=== PATIENT | male | born 1950 | race Caucasian/White ===

== ENCOUNTER → 2019-10-21 11:20 | Outpatient (CLI) | payer MEDICARE, OTHER, SELFPAY ==
[2019-10-21 22:27] LABS: COVID19 Sendout Not Detected (Not Detect)
== END ==
PROVIDERS: PCP Internal Medicine; Visit Provider Nurse Practitioner
DX: Z01.812 Encounter for preprocedural laboratory examination (principal)
CPT/HCPCS: 87635

== ENCOUNTER 2019-10-24 05:47 | Inpatient (IN) | payer MEDICARE, OTHER, SELFPAY ==
[2019-10-20 14:02] VITALS: BMI 31.4
[2019-10-24] VITALS (21 sets, daily range): BP systolic 79–128; BP diastolic 44–84; PULSE 69–701; RESP 10–91; TEMP 36.4–37.1; O2SAT 90–99; BMI 28.4
--- NOTE | 2019-10-24 | DI.RAD.S_ITS ---
PROCEDURE: XR HIP W PEL IF DONE RT 2V INDICATIONS: HIP ARTHROPLASTY RIGHT TECHNIQUE: 2 view(s) of the hip acquired. COMPARISON: [facility] [place], [place], XR PELVIS WITH LATERAL HIP RIGHT, 06/10/2019, 10:51. FINDINGS: Bones: Patient is status post right hip arthroplasty, with hardware components in expected positions. The hip joint appears congruent. The visualized bony structures appear intact. Soft tissues: Overlying postoperative changes are noted. No suspicious soft tissue densities. IMPRESSION: Right hip arthroplasty with prosthesis in anatomic alignment. Dictated by: Maxi Cameron M.D. on 10/24/2019 at 14:56 Approved by: Maxi Cameron M.D. on 10/24/2019 at 14:57
--- NOTE | 2019-10-24 | DI.RAD.S_ITS ---
PROCEDURE: XR PELVIS 1-2V INDICATIONS: POST OP ANTERIOR HIP ARTHROPLASTY TECHNIQUE: 1 view of the lower pelvis acquired. COMPARISON: None. FINDINGS: Bones: Patient is status post right hip arthroplasty, with hardware components in expected positions. The hip joint appears congruent. The visualized bony structures appear intact. Soft tissues: Overlying postoperative changes are noted. No suspicious soft tissue densities. IMPRESSION: Right total hip arthroplasty, normal alignment established. Dictated by: Jc Weldon M.D. on 10/24/2019 at 11:02 Approved by: Jc Weldon M.D. on 10/24/2019 at 11:03
[2019-10-24] MEDS: LACTATED RINGERS 1,000 ML 42 ML IV ×2 (07:04→08:50)
[2019-10-24] MEDS: CELECOXIB 200 MG CAPSULE 400 MG PO (07:08)
[2019-10-24] MEDS: GABAPENTIN 300 MG CAPSULE PO (07:08)
[2019-10-24] MEDS: ACETAMINOPHEN 325 MG TABLET 975 MG PO (07:08)
--- NOTE | 2019-10-24 07:34 | PM.PREOP ---
Pre-operative Note COVID-19 COVID-19 status: Negative Result date/Date tested (Pos, Neg/Pending): 10/21/19 Interval Note History & Physical reviewed/Exam performed by Physician: Yes Changes to H&P: No H&P completed within 30 days and has changed as indicated here:: Plan for right anterior JOSEMANUEL. Patient does not have an email address.
--- NOTE | 2019-10-24 07:41 | SUR.PREOP ---
Dr. Hinojosa ok with current order for Anc in relation to pt allergy to PCN. Communicated this with circulating RN
[2019-10-24] MEDS: CEFAZOLIN 2 GM/100 ML FROZ.PIGGY IV ×2 (07:49→15:21)
[2019-10-24] MEDS: TRANEXAMIC ACID 1,000 MG VIAL 2000 MG INJ ×2 (08:27→09:58)
--- NOTE | 2019-10-24 08:37 | SUR.OPER ---
Supine on padded [place] table with bilateral legs secured in padded positioning boots and suspended in positioning spars, operative leg in traction per surgeon. Head on one pillow. Arm on non-operative side secured on padded armboard <90 degrees abduction. Arm on operative side padded and resting across chest then secured with tape over sheet. Padded perineal post in place per surgeon.
[2019-10-24] MEDS: ROPIVACAINE 0.5% PF 30ML 20 ML INJ (08:46)
[2019-10-24] MEDS: KETOROLAC 30 MG/ML VIAL IV (08:49)
[2019-10-24] MEDS: MORPHINE 4 MG/ML INJ IM (08:50)
--- NOTE | 2019-10-24 10:23 | P.OP_ITS ---
Operative Date/Time/Diagnoses Date of procedure: 10/24/19 Time of procedure: 10:23 Pre-op diagnosis: right hip OA Post-op diagnosis: same Procedure & Clinicians Procedure: right anterior JOSEMANUEL Same procedure as scheduled: Yes Indications: right hip OA Surgeon: Monty Hinojosa Stockroom Supervisor: Rui Ruiz Anesthesia Type: General and Spinal Operative Notes Findings: right hip OA with femoral neck CAM lesion Closure Type: primary Specimen(s): none sent Prosthetic devices, grafts, tissues, transplants, or devices: Caballero and Nephew 58 mm R3 cup Caballero [employer] Nephew 58 x 36mm neutral liner Caballero [employer] Nephew Anthology 12 stem standard offset 1x 25mm screw 1x 15mm screw Biolox delta 36 + 4 head Estimated Blood Loss (mL): 500 Blood products transfused: none Procedure in detail: Patient was met in the preoperative holding area where the site and side of surgery were marked by MD. All last minute questions were answered. Informed consent was then signed in clinic however this was also reviewed the preoperative area no further questions. Patient was informed of then ports collection and that I would like to collect e-mail for possible surgery followup patient is not have any male at rest. Patient was then brought back in the operating room where he received a spinal anesthetic and was induced under general anesthesia. He was then transferred onto the [place] table and bilateral feet were placed in [place] table boots. The right hip was then prepped and draped in normal sterile fashion. A surgical time-out was performed verifying the site and side of surgery as well as the name of the patient. A 7 cm long incision was made approximately 2 cm distal and 1 cm lateral to the ASIS aiming towards the fibular head. Skin incision was made using 10. Blade followed by electrocautery down to the level of the tensor fascia tensor fascia was then split with an 10. Blade. An Allis clamp was placed on the medial leaflet of the tensor fascia and the tensor was then reflected laterally. A Cobra was placed over the superior neck of the femoral neck. A Meyerding was then placed over the lateral aspect of the rectus were retracted medially. At this point the ascending branches of the circumflex femoral circumflex were identified and coagulated. A 2nd cobra was placed over the inferior neck of the femoral neck and the pre capsular fat pad was removed using electrocautery. A bent Hohmann was then placed over the superior lip of the acetabulum giving us good visualization of the capsule. A inverted T-shaped capsulotomy was performed in the superior and inferior leaflets were tagged with FiberWire. C obras were then placed intracapsularly. A reciprocating saw was then used to make a femoral neck cut femoral neck length was based off our preoperative templating. A corkscrew was then placed into the femoral head and the femoral head was removed. The soft tissue sleeve protector was then placed into the wound and retractors were then replaced. We began reaming with a number 50 mm hemispherical Reamer 1st medialized. Fluoro was brought in to verify positioning. We began up sizing by 2s until we reached a size 56 mm Reamer started having good rim fit. We then up sized by 1-57 mm Reamer this had good fit as well and 50 mm 3 hole R3 cup was selected. This was then malleted it into place under fluoroscopic guidance. Two dome screws were placed 25 mm and 15 mm screw. The 50 mm x 36 mm neutral liner was then impacted in the cup and all the tabs were checked to be flushed with the cup rim. Femoral elevator hook was then placed underneath the femur the foot was then externally rotated to maximal external rotation which is about 100? the foot was then extended to the ground and abducted. A bent Hohmann was then placed over the superior aspect of the capsule and capsular release from the shoulder of the greater trochanter was performed and limited extra short external rotator release was also performed. A large please see retractor was then placed over the greater trochanter replacing the bent Hohmann. A Steele retractor was placed over the medial aspect of the calcar and. A canal finer was then used to find the center of the femoral canal with began broaching with the chili pepper broach followed by and AP did 5. For the broach and then from there up by 1s. A 12 stem had a good rotational fit we then calcar planed down to the flushed level of the 12. Stem. This was then trialed with a standard offset and a neutral head. Fluoroscopic views demonstrated that we were slightly short on this side. The hip was then dislocated a size 12 final stem was selected with a standard offset this was then malleted into place. A 36+ 4 mm bio locks head was then selected the trunnion was cleaned and the ceramic head was malleted onto the taper. The hip was then reduced a final time. Hip was stable to maximal external rotation of the foot and also stable to 90? of external rotation and full extension to the floor. The wound was then irrigated with Betadine allowed to sit for 5 minutes prior to copious irrigation with normal saline local injection was then infiltrated into the capsule as well as the tensor. The capsule was then repaired using a running Ethibond suture. The FiberWire tag sutures were removed. A 1. Vicryl was using a running locking fashion to close the tensor fascia followed by 1. Vicryl in the fat layer followed by 2 Vicryl in the subcutaneous layer layer followed by a 3 0 strata fix in the subcuticular layer followed by Dermabond and Aquacel dressing Complications: none Post-operative Condition: stable Disposition: PACU Plan for aftercare: 24 hours post-op abx, WBAT RLE, 6 weeks ASA 81mg BID
[2019-10-24] MEDS: LACTATED RINGERS 1,000 ML 120 ML IV (10:45)
--- NOTE | 2019-10-24 10:54 | SUR.PHASEI ---
arousing spontaneously, denies pain/nausea. Ice chips given.skin warm and dry, resp unlabored.
--- NOTE | 2019-10-24 11:05 | SUR.PHASEI ---
Closed 3 bruise, closed abrasion look on the back of the right forarm. Antibiotic ointment and allevyn dressing applied. Pt awake/drowsy, talking appropriately. Tolerating ice chips. Denies being light headed or dizzy. foot of bed elevated.
--- NOTE | 2019-10-24 11:22 | SUR.PHASEI ---
report called to JARRET Germain. Report included VS, pt status, abrasion, taking ice chips, no pain/nausea and anesthesia report. Stated that she is comfortable taking the patient.
--- NOTE | 2019-10-24 11:46 | SUR.PHASEI ---
1133 to room 208, bed down and locked, call light within reach. Pt awake and oriented, moving LE, denies pain, dressing remains CDI. Glasses are on the patient, clothing bag to the room. SCD's on. Status updated, no questions/concerns.
[2019-10-24] MEDS: LACTATED RINGERS 1,000 ML 125 ML IV ×2 (12:13→20:21)
--- NOTE | 2019-10-24 12:25 | PC.NURSE ---
Day shift note: 1145 Received patient from PACU to room 208 S/P left JOSEMANUEL scheduled by Dr. Hinojosa. Awake, alert, and pleasantly calm, on RA, sats 96-98%. Left anterior hip Aquacel, CDI, with ice pack overlying. LLE movable, 2+ pedal pulse, numbness to mid thigh extending to toes, improving. Placed SCDs upon arrival. Oriented to room, environment, and plan of care, high fall risk precautions initiated, call light within reach.
[2019-10-24] MEDS: ALBUTEROL 2.5 MG/3 ML NEB (ADULT) INH ×2 (14:51→20:01)
[2019-10-24 15:01] LABS: INR 1.2 (0.9-1.3); Prothrombin Time 13.5 SECONDS (10.1-12.7)
[2019-10-24] MEDS: ACETAMINOPHEN 325 MG TABLET 650 MG PO ×2 (15:20→20:20)
[2019-10-24] MEDS: ONDANSETRON 4 MG/2 ML INJ IV ×2 (15:23→20:19)
[2019-10-24] MEDS: OXYCODONE IR 5 MG TABLET PO ×2 (15:23→19:02)
--- NOTE | 2019-10-24 17:31 | PT.IIE ---
Current Diagnoses Unilateral primary osteoarthritis, right hip (10/24/19) Surgery Performed Operation Date: 10/24/19 07:45 Actual Procedures p Total Hip Arthroplasty/Anterior Approach(Right) - Monty Hinojosa MD Surgical History (Last Updated 10/20/19 @ 14:19 by Letty Farmer, RN) History of bilateral knee arthroplasty (Acute 2017) Hx of appendectomy (Acute) Hx of hernia repair (Acute) Hx of sinus surgery (Acute) Medical History (Last Updated 10/20/19 @ 14:59 by Letty Farmer RN) Afib (Acute) Compression fracture of T11 vertebra (Acute 1973) Easy bruisability (Acute) Pacemaker (Acute) Thin skin (Acute) Physical Therapy Inpatient Evaluation/Re-Eval M1 PT/OT-IP Prior Functional Status Start: 10/24/19 13:19 Freq: NEEDED Status: Active Protocol: Document 10/24/19 17:15 AW (Rec: 10/24/19 17:31 AW [id number]) Medical Review Prior Functional Status Medical History Reviewed Yes Communication Pt is an effective verbal communicator. Mobility and Gait Pt is modified independent with use of SPC (held in right hand) nearly 100% of the time . His ambulation tolerance has been limited to 1/2 block due to worsening pain. Activities of Daily Living and IADL's Independent. 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 Social History Household Members spouse Living Arrangements House Number of Floors (Floors) One Floor Number of Stairs To Enter/Railing? unknown Home Environment Standard Height Toilet,Tub/ Shower Home Equipment Front Wheel Walker,Raised Toilet Seat Without Armrests, Shower Seat with Backrest,Hand Held Shower Additional Social History Comment Pt lives with his spouse, Rylee, who will be available and able to assist as needed at discharge. Pt states he plans to sleep in his recliner at home until more comfortable in the bed. M2 PT-IP Current Condition Start: 10/24/19 13:19 Freq: NEEDED Status: Active Protocol: Document 10/24/19 17:15 AW (Rec: 10/24/19 17:31 AW [id number]) Physical Therapy Current Condition Current Condition Evaluation Date 10/24/19 Treatment Diagnosis s/p R JOSEMANUEL anterior approach; difficulty in walking Onset Date 10/24/19 Precautions Anterior Hip Precautions No Hip Extension,No Hip External Rotation Weight Bearing Status Weight Bearing Status Weight Bear as Tolerated M3 PT-IP Subjective Start: 10/24/19 13:19 Freq: NEEDED Status: Active Protocol: Document 10/24/19 17:15 AW (Rec: 10/24/19 17:31 AW [id number]) Subjective Physical Therapy Visit Type Type Initial Evaluation Visit Start Time 16:00 Visit Stop Time 16:30 Total Visit Minutes 30 Physical Therapy Visit Comments Patient Comments Pt feeling nauseated but willing to participate with PT . Therapy Pain Assessment Pain When Pain Assessed During Mobility Pain Present Pain Present Denied Pain M4 PT-IP Mobility and Gait Start: 10/24/19 13:19 Freq: NEEDED Status: Active Protocol: Document 10/24/19 17:15 AW (Rec: 10/24/19 17:31 AW [id number]) PT-Bed Mobility Assessment Supine to Sit Supine to Sit Contact Guard Assistance Sit to Supine Sit to Supine Minimal Assistance,1 Person Assistance Scooting Scooting to Edge of Bed Contact Guard Assistance PT-Transfer Assessment Sit to and From Stand Sit to and from Stand Minimal Assistance,Moderate Assistance,1 Person Assistance ,Use of Upper Extremities Equipment Transfer Assistive Device Gait Belt,Front Wheeled Walker Orthotic/Prosthetic Devices or Brace: No Transfers Transfer Destination Bed,Bedside Commode Transfer Technique Stand Step Pivot Transfer Ability Level of Assist Minimal Assistance Comments Mobility Comments Pt was reclined in the bed upon PT arrival. Nursing stated his BP had been low and he had been medicated for nausea. BP in supine was 113/ 80 HR 73 and SpO2 95% on 1L NC . He completed supine to sit CGA and sat EOB with and without UE support. He stood using FWW min A x 1 and transferred slowly to the [facility] set up on his right side min A . He complained of increased nausea while sitting on the commode and had three episodes of dry heaves. He became clammy and cold. BP was 108/83 HR 86. Pt was unable to void so stood from the BSC mod A x 1 due to increasing weakness and nausea. He was assisted back to the bed mod A x 1 and he completed sit to supine min A x 1. He was positioned in the bed with fan directed at his face, SCD's applied, bed alarm armed for safety, and call light within reach. Gait Assessment Comments Gait Comments Pt unable at this time. Stair Climbing Assessment Comments Stair Climbing Comments Not assessed. PT-Balance Assessment Sitting Balance and Reactions Static Sitting Balance Ability Good Dynamic Sitting Balance Ability Good Standing Balance and Reactions Static Standing Balance Ability Fair Dynamic Standing Balance Ability Poor Device Used FWW M5 PT-IP Objective Assessments Start: 10/24/19 13:19 Freq: NEEDED Status: Active Protocol: Document 10/24/19 17:15 AW (Rec: 10/24/19 17:31 AW [id number]) Orientation Orientation/Cognition Level of Alertness Lethargic Orientation Name,Day of Week,Place, Situation Language Function Ability No Deficits Noted Safety Awareness Decreased Safety Awareness Memory Description No Deficits Noted Gross Range of Motion Lower Extremity ROM Assessment Right Impaired Strength Lower Extremity Strength Assessment Right Impaired Hip 3+/5 Knee 4-/5 Ankle 4/5 Coordination Assessment Gross Coordination Gross Coordination WNL Sensation Assessment Sensation Gross Sensation WNL Muscle Tone Muscle Tone WNL Yes M6 PT-IP Treatment Start: 10/24/19 13:19 Freq: NEEDED Status: Active Protocol: Document 10/24/19 17:15 AW (Rec: 10/24/19 17:31 AW [id number]) Physical Therapy Treatment Exercises Exercises Ankle Pumps,Heel Slides Education Education Provided Precautions,Weight Bearing Status,Post-Op Packet,Safety Other Treatments Other Treatment Performed Provided education on role of PT, plan of care, weightbearing status, and safe use of FWW for transfers. M7 PT-IP Assessment and Plan Start: 10/24/19 13:19 Freq: NEEDED Status: Active Protocol: Document 10/24/19 17:15 AW (Rec: 10/24/19 17:31 AW [id number]) PT Summary Assessment and Plan Potential Rehabilitation Potential Good Status of Condition at Evaluation Evolving Summary Impairments Pain,ROM,Strength,Balance,Bed Mobility,Transfers,Gait, Activity Tolerance Assessment Summary Dayron is a 69 yo man seen for PT evaluation on POD0 following R JOSEMANUEL with anterior approach. He has history of bilateral TKA and is modified independent at baseline with use of a SPC for all mobility. On evaluation, pt presented with decreased activity tolerance due to nausea. He required CGA for bed mobility, and min to mod assist for transfers. PT anticipates he will progress well and ultimately be safe to discharge home with family assist and outpatient PT once medically cleared. Goals Bed Mobility Goal Independent Transfer Goal Standby Assistance,Front Wheeled Walker Gait Goal Standby Assistance,Front Wheel Walker Gait Distance 200 Other Goals - need to inquire about stairs at home Days to Meet Goals 2 Frequency of Treatment Frequency Of Treatment Twice a Day Treatment Plan Physical Therapy Treatment Plan Bed Mobility Training,Transfer Training,Gait Training, Therapeutic Exercise,Balance Retraining,Post Op Education, Discharge Planning,Hot or Cold Pack Other Recommendations and Next Treatment transfers, gait training with Focus FWW Recommendations To Nursing Amount of Assist Needed 1 Person Assist Discharge Recommendations PT Discharge Recommendations Home with Assistance, Outpatient PT Transportation Needs at Discharge Private Vehicle
[2019-10-24] MEDS: FLUTICASONE 220MCG HFA 120 PUFF INH (20:01)
[2019-10-24] MEDS: DOCUSATE 100 MG CAPSULE PO (20:20)
[2019-10-24] MEDS: ASPIRIN EC 81 MG TABLET PO (20:20)
[2019-10-24] MEDS: METOPROLOL IR 50 MG TABLET 75 MG PO (20:20)
[2019-10-25] MEDS: CEFAZOLIN 2 GM/100 ML FROZ.PIGGY IV (00:06)
[2019-10-25 01:15] VITALS: BP 105/76; PULSE 70; RESP 18; TEMP 36.7; O2SAT 98
--- NOTE | 2019-10-25 01:42 | PC.NURSE ---
Patient seen and assessed at 0100. Had been asleep since shift change but aroused easily. Is alert and oriented. Breath sounds CTA with sat of 98% while on oxygen at 1L/min per NC. HRR. Denies nausea at present time. BT hypoactive and patient denies having passed flatus. Voided on previous shift and denies dysuria, frequency or urgency. Is able to move self in bed. Evening RN reports he was up to bathroom with walker and SBA; gait not assessed at this time. Aquacel dressing to right hip is CDI. Dressing to right forearm is CDI (reported to have received an abrasion in surgery). Scattered bruising present on bilateral UE. Wearing bilateral calf SCD's; refused SARI stockings. Denied pain. Fall risk score is moderate and bed alarm is activated.
[2019-10-25 04:35] VITALS: BP 109/73; PULSE 70; RESP 18; TEMP 36.9; O2SAT 99
[2019-10-25] MEDS: ONDANSETRON 4 MG ODT PO ×2 (05:14→10:46)
[2019-10-25] MEDS: ALBUTEROL 2.5 MG/3 ML NEB (ADULT) INH (05:25)
[2019-10-25] MEDS: FLUTICASONE 220MCG HFA 120 PUFF INH (05:25)
[2019-10-25 05:28] VITALS: PULSE 70; RESP 16; O2SAT 98
[2019-10-25 06:02] LABS: Hematocrit 37.8 % (41-53); Hemoglobin 12.7 g/dL (13.5-17.5)
[2019-10-25 06:49] VITALS: O2SAT 97
--- NOTE | 2019-10-25 07:07 | P.DS_ITS ---
History of Present Illness History of Present Illness Date Patient Seen: 10/25/19 Time Patient Seen: 07:07 Chief complaint: *OPB* [id number] Narrative: Patient is POD#1 from right anterior JOSEMANUEL for OA. Doing well. PAin is controlled. Mobilizing with PT Discharge Providers Provider Date of admission: 10/24/19 05:47 Discharge Date: 10/25/19 Primary care physician: Francesco Dan MD Consults: 10/24/19 11:34 Consult to Discharge Planning Routine Comment: Consult to Physical Therapy Evaluate & Treat Comment: Physician Instructions: post op JOSEMANUEL protocol Consult to Respiratory Therapy Evaluate & Treat Comment: Physician Instructions: Evaluate and treat Discharge provider: Monty Hinojosa MD Summary Hospital Course Discharge Diagnosis: s/p right JOSEMANUEL Hospital Course: PAtient admitted for R anterior JOSEMANUEL. NOw POD#1 doing well. Mob ilizing with PT. Status at Discharge Cognitive/behavioral status at discharge: oriented Overall status at discharge: patient is progressing back to baseline Time Spent with Patient Time spent: Less than 30 minutes Exam Vital Signs (past 8 hours): - 10/25/19 01:15 10/25/19 04:35 10/25/19 05:28 Temperature 98.0 F 98.4 F Pulse Rate 70 70 70 Respiratory Rate 18 18 16 Blood Pressure 105/76 109/73 Pulse Oximetry 98 99 98 10/25/19 06:49 Temperature Pulse Rate Respiratory Rate Blood Pressure Pulse Oximetry 97 Oxygen Delivery Method Room Air Oxygen Flow Rate 0 Narrative Exam Narrative: NV intact in RLE, dressing c/d/i Objective Labs Result Diagrams: 10/25/19 05:45 Labs: Laboratory Results - last 24 hr 10/24/19 10/25/19 14:35 05:45 Hgb 12.7 L Hct 37.8 L PT 13.5 H INR 1.2 Discharge Plan Discharge Plan Patient Disposition: Home Discharge comment: DC home when cleared by PT Discharge orders & Medications Prescriptions: New aspirin 81 mg Tablet,Delayed Release (Dr/Ec) 81 mg PO BID Qty: 84 RF: 0 oxycodone 5 mg Tablet 5 mg PO Q4HR PRN (Reason: Pain, Moderate) Qty: 60 RF: 0 Continued albuterol sulfate 2.5 MG/3 ML solution for nebulization 3 ml INH TID-QID Qty: 0 RF: 0 multivitamin [Multiple Vitamins] 1 EACH tablet 1 tab PO QDAY Qty: 0 RF: 0 metoprolol tartrate 50 MG tablet 75 mg PO BID Qty: 0 RF: 0 albuterol sulfate [Proventil HFA] 90 MCG/PUFF HFA aerosol inhaler 2 puff INH Q6HP PRN (Reason: Shortness Of Breath) Qty: 0 RF: 0 Eliquis 5 MG tablet 5 mg PO BID Qty: 0 RF: 0 Flovent HFA 220 mcg/actuation Hfa Aerosol Inhaler 2 puff INHALATION BID RF: 0 acetaminophen 325 MG tablet 650 mg PO Q4HP PRN (Reason: Pain) RF: 0 Follow up/Referrals: Francesco Dan MD [Primary Care Provider] - Monty Hinojosa MD [Physician] - 2 Weeks Diet/Activity/Treatments Diet: Regular Activity: WBAT on operative leg Skin/Wound/Dressing Care Dressing: Leave dressing in place until follow up visit. OK to shower over the dressings. Do not soak (bath) Visit Report/Discharge Packet Instructions: DI for Hip Replacement, DI for Prescription Opioid Use Stand Alone Forms: Surgery Discharge Discharge Data Primary Care Provider: Francesco Dan
[2019-10-25 07:49] VITALS: PULSE 64; RESP 16; O2SAT 99
[2019-10-25 08:00] VITALS: BP 116/75; PULSE 70; RESP 16; TEMP 36.4; O2SAT 98
[2019-10-25] MEDS: APIXABAN 5 MG TABLET PO (08:48)
[2019-10-25] MEDS: ASPIRIN EC 81 MG TABLET PO (08:48)
[2019-10-25] MEDS: METOPROLOL IR 50 MG TABLET 75 MG PO (08:48)
[2019-10-25] MEDS: DOCUSATE 100 MG CAPSULE PO (08:48)
[2019-10-25] MEDS: SODIUM CHLORIDE 0.9% FLUSH 10 ML IV (08:49)
[2019-10-25] MEDS: ACETAMINOPHEN 325 MG TABLET 650 MG PO (08:49)
--- NOTE | 2019-10-25 09:19 | CM.DANOTE ---
Addendum entered by Michelle Sherman LPN 10/25/19 11:02: Met now with pt and introduced self and role. Pt says he is well aware of the d/c order for today and my is on her way. He reports he is very comfortable with the d/c. He has had both knees done, is comfortable being in the hospital but because of COVID precautions he says he is very eager to get back to his home environment. P: home as soon as all paperwork is complete. Ortho clinic followup. 's supportive assist. Addendum entered by Michelle Sherman LPN 10/25/19 09:28: DCP: assessment: Case received, EMR reviewed, d/c to home order noted by Dr. Hinojosa. Original Note: Discharge Planning/Care Management CM Discharge Assessment Start: 10/25/19 09:05 Freq: Status: Active Protocol: Document 10/25/19 09:08 ITV (Rec: 10/25/19 09:18 ITV [id number]) Discharge Planning Assessment Advance Directives? No History Provided By Medical Record Prior Living Arrangements House Household Members spouse Review Status In Process Pre-Anesthesia Assessment Start: 10/20/19 14:02 Freq: Status: Complete Protocol: Document 10/20/19 14:02 CAB (Rec: 10/20/19 14:37 CAB [id number]) Pre-Anesthesia Assessment Preferred Name Dayron Patient Information Reviewed Via Phone Assessment Assessment Completed With Patient Diagnostic Results BMP/CMP,CBC,EKG Comment Outside labs/EKG scanned in- COVID screen @ [facility] 10/21/19 Primary Care Provider Francesco Dan Seen Specialist in Last 12 Months Yes Specialist Seen Flash Drier Operator,Orthopedist Primary Language R[place] Gear Grinder Required No Height 177.8 cm Weight 99.337 kg Body Mass Index (BMI) 31.4 Hearing Ability Normal Visual Assist Glasses Dentition Type Teeth, Natural Present,Teeth, Missing Barriers to Learning None Other Aids No Hx Anesthesia Reactions Yes: PONV w/first knee replacement, none since Hx Family Anesthesia Reaction No Hx Malignant Hyperthermia No Hx Blood Transfusions No Anesthesia Review Requested No alcohol intake former Alcohol Intake Frequency Other: Quit 20-30 years ago Smoking Status Former smoker Tobacco type cigarettes how long ago did patient quit smoking Quit 20-30 years ago Substance Use Type does not use Pain Present Pain Reported Musculoskeletal Symptoms Abnormal Gait,Difficulty Walking,Joint Pain,Myalgias History of Falling (Recent or History of No ) Patient is completely paralyzed or No completely immobile Prosthesis or Orthotic Device Cane Mental Status Oriented to own ability Is patient on oxygen? No Does patient have GREEN/SOB No Hx Sleep Apnea No Currently Taking a Beta Jeremie Yes: Metoprolol Can You Climb a Flight of Stairs Without Yes SOB Hx Chest Pain No Hx SOB No Hx Syncope or Dizziness No Anti-Coagulant Therapy Yes: Eliquis-Pt stopped on his own 5-7 days ago. Advised him to check w/MD Has a Flash Drier Operator Yes: Dr. Blount-last visit Hx Pacemaker/ICD Yes Pacemaker Rep Required? No: Pacemaker form scanned in and placed in folder for dos Cardiac Clearance Received Yes Comment Cardiac records scanned into record Diet Type At Home Vegetarian dysphagia No Urinary Catheter Present No Hx Urinary Self Catheterization No Diabetes No HgbA1C 5.3 Date 09/13/19 Hx Drug Resistant Organism No Presence of External or Internal Medical Yes: Bilat knee prosthesis, Devices pacemaker Have you had any close contact with No someone diagnosed with COVID-19? Evaluation/Screening for possible COVID- Yes 19 infection completed? Marital Status Lives With spouse Prior Living Arrangements House Number of Floors (Floors) One Floor Support System Spouse Does the Patient Have Assistance After Yes Surgery Patient Discharge Plan Description Return Home Comment Pt advised overnight length of stay per surgeon Feels Safe in Current Environment Yes Been Physically Hurt or Threatened By a No Person in Current Environment Do you have thoughts of harming yourself None or others? Are you currently considering suicide? No Do you have a plan to hurt yourself or No Plan others? Do You Have Any Spiritual Beliefs That No May Affect Your HC Choices? Do You Have Any Cultural Practices That No May Affect Your HC Choices? Comment Seven Day Nondenominational Who Can We Speak to About Patient's Care Family, friends Identifying Code for Release of Patient Declines to issue Information Health Care Proxy/Next of Kin Rylee () Health Care Proxy Emergency Contact Name Rylee () Emergency Contact Advance Directives? No Power of Pipe Testing Technician Yes Power of Pipe Testing Technician Name Rylee () Power of Pipe Testing Technician PAC Instructions Durable medical equipment, Medications to take/avoid, Nasal antibiotic,No ETOH/ petroleum product on skin DOS, NPO,Pre-surgical wash,Sensory aids,Sturdy shoes/comfortable clothes,Do not bring valuables and remove jewelry
--- NOTE | 2019-10-25 10:22 | PT.IPTN ---
Current Diagnoses Unilateral primary osteoarthritis, right hip (10/24/19) Surgery Performed Operation Date: 10/24/19 07:45 Actual Procedures p Total Hip Arthroplasty/Anterior Approach(Right) - Monty Hinojosa MD Physical Therapy Treatment Note M2 PT-IP Current Condition Start: 10/24/19 13:19 Freq: NEEDED Status: Active Protocol: Document 10/24/19 17:15 AW (Rec: 10/24/19 17:31 AW [id number]) Physical Therapy Current Condition Current Condition Evaluation Date 10/24/19 Treatment Diagnosis s/p R JOSEMANUEL anterior approach; difficulty in walking Onset Date 10/24/19 Precautions Anterior Hip Precautions No Hip Extension,No Hip External Rotation Weight Bearing Status Weight Bearing Status Weight Bear as Tolerated M3 PT-IP Subjective Start: 10/24/19 13:19 Freq: NEEDED Status: Active Protocol: Document 10/25/19 10:08 CLB (Rec: 10/25/19 10:48 CLB [id number]) Subjective Physical Therapy Visit Type Type Treatment Note Visit Start Time 10:08 Visit Stop Time 10:22 Total Visit Minutes 14 Number of FILLER AND TRIMMER Visits 1 Physical Therapy Visit Comments Patient Comments Pt willing to work with theapy . Therapy Pain Assessment Pain When Pain Assessed During Mobility Pain Present Pain Present Denied Pain M4 PT-IP Mobility and Gait Start: 10/24/19 13:19 Freq: NEEDED Status: Active Protocol: Document 10/25/19 10:08 CLB (Rec: 10/25/19 10:48 CLB [id number]) PT-Bed Mobility Assessment Sit to Supine Sit to Supine Standby Assistance PT-Transfer Assessment Sit to and From Stand Sit to and from Stand Standby Assistance,Use of Upper Extremities Equipment Transfer Assistive Device Gait Belt,Front Wheeled Walker Orthotic/Prosthetic Devices or Brace: No Transfers Transfer Destination Bed,Chair Transfer Technique ambulated with FWW Transfer Ability Level of Assist Standby Assistance Comments Mobility Comments Pt in recliner upon arrival. Pt stood requiring SBA, pt then ambulated in elias ~240ft w/FWW/SBA, pt returned to room and required SBA stand-sit- supine. Pt able to manage RLE independently. Pt used LLE to push and adjust himself in bed for comfort. Pt performed theraputic exercises. Left pt in bed with all needs within reach and alarm on, pt refused SCD's. Gait Assessment Gait Gait Assistance Required: Standby Assistance Distance (Feet) 240 Able to Maintain Weight Bearing Status Yes During Gait Assistive Devices Assistive Device Gait Belt,Front Wheeled Walker Orthotic/Prosthetic Devices or Brace: No Gait Deviations General Gait Pattern Antalgic,Decreased Stride Length,Decreased Feet Clearance,Narrow Based Gait Factors Limiting Gait Function Factors Limiting Gait Function Decreased Activity Tolerance, Decreased Strength,Limited Range of Motion,Poor Balance Comments Gait Comments Pt able to ambulate ~240ft SBA using FWW. Pt has good safety awareness and steady gait with FWW. Stair Climbing Assessment Comments Stair Climbing Comments Pt has no stairs to enter home through garage and no step in home. M5 PT-IP Objective Assessments Start: 10/24/19 13:19 Freq: NEEDED Status: Active Protocol: Document 10/24/19 17:15 AW (Rec: 10/24/19 17:31 AW [id number]) Orientation Orientation/Cognition Level of Alertness Lethargic Orientation Name,Day of Week,Place, Situation Language Function Ability No Deficits Noted Safety Awareness Decreased Safety Awareness Memory Description No Deficits Noted Gross Range of Motion Lower Extremity ROM Assessment Right Impaired Strength Lower Extremity Strength Assessment Right Impaired Hip 3+/5 Knee 4-/5 Ankle 4/5 Coordination Assessment Gross Coordination Gross Coordination WNL Sensation Assessment Sensation Gross Sensation WNL Muscle Tone Muscle Tone WNL Yes M6 PT-IP Treatment Start: 10/24/19 13:19 Freq: NEEDED Status: Active Protocol: Document 10/25/19 10:08 CLB (Rec: 10/25/19 10:48 CLB [id number]) Physical Therapy Treatment Exercises Exercises Ankle Pumps,Gluteal Sets,Quad Sets,Heel Slides Education Education Provided Precautions,Weight Bearing Status,Post-Op Packet,Safety M7 PT-IP Assessment and Plan Start: 10/24/19 13:19 Freq: NEEDED Status: Active Protocol: Document 10/25/19 10:08 CLB (Rec: 10/25/19 10:48 CLB [id number]) PT Summary Assessment and Plan Potential Rehabilitation Potential Good Status of Condition at Evaluation Evolving Summary Impairments Pain,ROM,Strength,Balance,Bed Mobility,Transfers,Gait, Activity Tolerance Assessment Summary Pt is SBA for all mobility. Pt able to ambulate ~240ft in elias w/o increase in pain. Pt able to stand from chair and get into bed SBA. Pt seems able to d/c home with assist when medically stable. Goals Bed Mobility Goal Independent Transfer Goal Standby Assistance,Front Wheeled Walker Gait Goal Standby Assistance,Front Wheel Walker Gait Distance 200 Other Goals - need to inquire about stairs at home Days to Meet Goals 2 Frequency of Treatment Frequency Of Treatment Twice a Day Treatment Plan Physical Therapy Treatment Plan Bed Mobility Training,Transfer Training,Gait Training, Therapeutic Exercise,Balance Retraining,Post Op Education, Discharge Planning,Hot or Cold Pack Recommendations To Nursing Amount of Assist Needed 1 Person Assist Discharge Recommendations PT Discharge Recommendations Home with Assistance, Outpatient PT Transportation Needs at Discharge Private Vehicle
--- NOTE | 2019-10-25 10:40 | PC.NURSE ---
Day shift discharge note: Discharge instructions given to patient, discussed importance of F/U with Dr. Hinojosa in 2 weeks, activity, dressing care, and s/sx of infections. Verbalized understanding. Discharge home per Dr. Hinojosa order, cleared by PT. VSS and afebrile. Home via private vehicle with spouse.
== END 2019-10-25 11:25 | disposition home or self-care (01) | DRG 470 ==
LOC: OR 05:55 → AC 05:59
PROVIDERS: Admitting Provider Orthopaedic Surgery Adult Reconstructive Orthopaedic Surgery; PCP Internal Medicine; Referring Provider Internal Medicine; Visit Provider Orthopaedic Surgery Adult Reconstructive Orthopaedic Surgery
PROC: 0SR902A Replacement of Right Hip Joint with Metal on Polyethylene Synthetic Substitute, Uncemented, Open Approach (ICD-10-PCS; CPT 27130; principal; 2019-10-24 07:45)
DX: M16.11 Unilateral primary osteoarthritis, right hip (principal); I49.5 Sick sinus syndrome; I48.91 Unspecified atrial fibrillation; J45.909 Unspecified asthma, uncomplicated; Z95.0 Presence of cardiac pacemaker; Z87.891 Personal history of nicotine dependence; Z01.812 Encounter for preprocedural laboratory examination; Z11.59 Encounter for screening for other viral diseases; Z79.01 Long term (current) use of anticoagulants
CPT/HCPCS: 36415; 72170; 73502; 76000; 85014; 85018; 85610; 87635; 94640; 94762; 97116; 97161; C1776; J0690; J1100; J1885; J2270; J2274; J2405; J2704; J2795; J7613

== ENCOUNTER 2019-10-26 05:32 | Emergency (ER) | payer MEDICARE, OTHER, SELFPAY ==
[2019-10-24 12:07] VITALS: BMI 28.4
[2019-10-26 05:45] VITALS: BP 131/77; PULSE 88; RESP 18; TEMP 37; O2SAT 97
--- NOTE | 2019-10-26 05:48 | ED.LOWEXIN ---
HPI - Extremity Injury (Lower) General Chief Complaint: Extremity Problem,Nontraumatic Stated Complaint: bleeding right hip replacement site Time Seen by Provider: 10/26/19 05:48 Source: patient Mode of arrival: Ambulatory Limitations: no limitations History of Present Illness HPI Narrative: The patient had right hip ORIF 2 days ago, he was discharged home yesterday. Postoperatively he was started back on Eliquis and aspirin for AFib. He also has a pacemaker in place. He is coming in because of blood leaking from the right hip bandage. He has not been ambulatory. There is pain at the op site. There is no pain or swelling in his calves. He has no chest pain, palpitations or dyspnea. He denies weakness or dizziness. He has had no fever or cough. Related Data Home Medications Medication Instructions Recorded Confirmed Eliquis 5 mg PO BID #0 01/13/17 10/24/19 albuterol sulfate 3 ml INH TID-QID #0 01/13/17 10/24/19 albuterol sulfate [Proventil HFA] 2 puff INH Q6HP PRN #0 01/13/17 10/24/19 metoprolol tartrate 75 mg PO BID #0 01/13/17 10/24/19 multivitamin [Multiple Vitamins] 1 tab PO QDAY #0 01/13/17 10/24/19 Flovent HFA 2 puff INHALATION BID 10/20/19 10/24/19 acetaminophen 650 mg PO Q4HP PRN 10/20/19 10/24/19 Previous Rx's Medication Instructions Recorded aspirin 81 mg PO BID #84 tab 10/25/19 oxycodone 5 mg PO Q4HR PRN #60 tab 10/25/19 Allergies Allergy/AdvReac Type Severity Reaction Status Date / Time Penicillins [PENICILLINS] Allergy Severe RASH, Verified 10/24/19 06:42 FACIAL ITCHING Review of Systems Review of Systems ROS Unobtainable: All systems reviewed & are unremarkable except as noted in HPI and below Constitutional Constitutional: Denies chills, Denies fever(s), Denies lethargy and Denies weakness Cardiovascular Cardiovascular: Denies chest pain, Denies irregular heart rhythm, Denies leg edema, Denies lightheadedness, Denies palpitations, Denies dyspnea and Denies dyspnea on exertion Respiratory Respiratory: Denies cough, Denies dyspnea, Denies dyspnea on exertion and Denies wheezing Musculoskeletal Comments: Pain and swelling at the right hip operative site. No calf tenderness. Neurologic Neurologic: Denies weakness Endocrine Endocrine: Denies palpitations Allergic/Immunologic Allergic/Immunologic: Denies wheezing Patient History Medical History (Updated 10/26/19 @ 06:21 by Robin Blackmon MD) Afib (Acute) Compression fracture of T11 vertebra (Acute 1973) Easy bruisability (Acute) Pacemaker (Acute) Thin skin (Acute) Surgical History (Updated 10/26/19 @ 06:21 by Robin Blackmon MD) History of bilateral knee arthroplasty (Acute 2016) History of total right hip arthroplasty (Acute) Hx of appendectomy (Acute) Hx of hernia repair (Acute) Hx of sinus surgery (Acute) Social History household members: spouse Smoking Status: Former smoker alcohol intake: former Smoking Status: Former smoker Substance Use Type: does not use Exam Initial Vital Signs Initial Vital Signs: Vital Signs Temperature 98.6 F 10/26/19 05:45 Pulse Rate 88 10/26/19 05:45 Respiratory Rate 18 10/26/19 05:45 Blood Pressure 131/77 10/26/19 05:45 Pulse Oximetry 97 10/26/19 05:45 Resp Effort & Inspection: normal respiratory effort and able to speak in complete sentences Auscultation: clear to auscultation bilaterally, no rales, no rhonchi and no wheezes Cardio Rhythm: abnormal rhythm irregularly irregular Heart Sounds: S1 normal, S2 normal, no click, no murmurs and no rubs Skin Other: Contusion around the operative site. No erythema at the incision site. Extrem General: full ROM, no clubbing, cyanosis or edema, no pedal edema and no calf tenderness Other: The Aquacel bandage was removed from the op site. The bandage is soaked with old blood. There is slight a bloody serous drainage from the wound site. There is no palpable, significant hematoma. The wound site looks good. Course Course Course Narrative: The incision site was cleansed. A new Aquacel bandage was placed at the op site. Vital Signs Vital signs: Vital Signs - 8 hr 10/26/19 05:45 Temperature 98.6 F Pulse Rate 88 Respiratory Rate 18 Blood Pressure 131/77 Pulse Oximetry 97 Discharge Plan Departure Patient Disposition: Home Clinical Impression: Post-op bleeding Qualifiers: Surgical complication system/body Area: subcutaneous tissue Procedure type: non-dermatologic Qualified Code(s): L76.22 - Postprocedural hemorrhage of skin and subcutaneous tissue following other procedure Instructions: How to Care for a Surgical Wound Activity Restrictions/Additional Instructions: Keep the wound clean. If the bandage at the incision site soaks and leaks again, call your doctor. Return here if necessary. Otherwise continue with your postop care plan. Prescriptions: No Action albuterol sulfate 2.5 MG/3 ML solution for nebulization 3 ml INH TID-QID Qty: 0 RF: 0 multivitamin [Multiple Vitamins] 1 EACH tablet 1 tab PO QDAY Qty: 0 RF: 0 metoprolol tartrate 50 MG tablet 75 mg PO BID Qty: 0 RF: 0 albuterol sulfate [Proventil HFA] 90 MCG/PUFF HFA aerosol inhaler 2 puff INH Q6HP PRN (Reason: Shortness Of Breath) Qty: 0 RF: 0 Eliquis 5 MG tablet 5 mg PO BID Qty: 0 RF: 0 Flovent HFA 220 mcg/actuation Hfa Aerosol Inhaler 2 puff INHALATION BID RF: 0 acetaminophen 325 MG tablet 650 mg PO Q4HP PRN (Reason: Pain) RF: 0 aspirin 81 mg Tablet,Delayed Release (Dr/Ec) 81 mg PO BID Qty: 84 RF: 0 oxycodone 5 mg Tablet 5 mg PO Q4HR PRN (Reason: Pain, Moderate) Qty: 60 RF: 0 Referrals: Francesco Dan MD [Primary Care Provider] -
--- NOTE | 2019-10-26 06:08 | PC.NURSE ---
Pt states bleeding under dressing s/p hip replacement on Thursday,on eliquis and baby asa. Dressing removed by Dr. Blakcmon, surgical site appears well with minimal bleeding. Dressing replaced with sugicell to site.
== END 2019-10-26 06:13 | disposition home or self-care (01) ==
LOC: ED 07:40
PROVIDERS: Emergency Provider Emergency Medicine; PCP Internal Medicine
DX: L76.22 Postprocedural hemorrhage of skin and subcutaneous tissue following other procedure (principal); Z95.0 Presence of cardiac pacemaker; I48.91 Unspecified atrial fibrillation; Z79.01 Long term (current) use of anticoagulants
CPT/HCPCS: 99281